=== PATIENT | female | born 1995 | race Caucasian/White ===

== ENCOUNTER 2017-07-30 15:30 | Outpatient (RCR) | payer OTHER ==
[2014-04-07 15:55] VITALS: BP 117/66
[~2017-07-30 15:30] MED LIST: MACROBID 1100 MG/CAP PO; PHENAZOPYRIDIN200 M1 PO; ZOLOFT25 MG PO
== END 2017-07-30 16:00 | disposition home or self-care (01) ==
LOC: PT 15:30
DX: M62.838 Other muscle spasm (principal); M54.2 Cervicalgia; R51 Headache

== ENCOUNTER → 2019-09-01 | Outpatient (CLI) | payer OTHER ==
[2014-04-07 15:55] VITALS: BP 117/66
== END ==
LOC: LAB 17:30
DX: J02.9 Acute pharyngitis, unspecified (principal); R51 Headache; R61 Generalized hyperhidrosis; R11.0 Nausea

== ENCOUNTER → 2020-05-10 | Outpatient (CLI) | payer OTHER ==
[2014-04-07 15:55] VITALS: BP 117/66
== END ==
LOC: LAB 15:32
DX: R05 Cough (principal); Z20.828 Contact with and (suspected) exposure to other viral communicable diseases